=== PATIENT | male | born 1960 | race Caucasian/White ===

== ENCOUNTER → 2016-06-25 | Outpatient (CLI) | payer OTHER ==
[~2016-06-25] MED LIST: /CELE20CA OR; /PANT40TA OR; ATEN50TA2 PO; PREVACID PO; SERZONE PO; TRAM50TA2 OR
--- NOTE | 2016-06-25 13:22 | REP ---
CT INTERNAL AUDITORY CANALS WITHOUT CONTRAST: HISTORY: Right hearing loss. The internal auditory canals, cochlea, vestibules, and semicircular canals are normal in appearance. The ossicles are normal in configuration and position. The scutum are intact. There are areas of dehiscence in the tegmen bilaterally. The middle ear cavities and mastoid air cells are clear. The visualized sinuses are clear. The nasopharynx is normal in appearance. IMPRESSION: Normal CT internal auditory canals. Signed by Nehemiah Perales MD 06/25/2016 01:48 P
== END ==
LOC: M RAD 12:18
DX: H90.A31 Mixed conductive and sensorineural hearing loss, unilateral, right ear with restricted hearing on the contralateral side (principal)

== ENCOUNTER → 2016-10-20 | Outpatient (REF) ==
--- NOTE | 2016-10-20 11:56 | REP ---
PARTIAL LUMBAR SPINE, THREE VIEWS: HISTORY: Degenerative disc disease. There is no acute fracture or subluxation. The intervertebral discs are decreased in height consistent with disc degeneration. Osteophytes are present throughout the lumbar spine. There is loss of the normal lordotic curve. There is scoliosis convex to the right. IMPRESSION: Degenerative change as described above. Signed by Nehemiah Perales MD 10/20/2016 11:56 A
== END ==
LOC: M SMT 11:14
PROVIDERS: ATTEND Internal Medicine
DX: Z02.1 Encounter for pre-employment examination (principal)

== ENCOUNTER → 2017-11-23 | Outpatient (CLI) | payer OTHER ==
[2017-11-23 10:14] LABS: HEMATOCRIT 44.2 % (42.0-52.0); HEMOGLOBIN 15.6 g/dl (13.5-17.5); MEAN CORPUSCULAR HEMOGLOBIN 30.8 pg (27.0-33.0); MEAN CORPUSCULAR HGB CONC 35.3 g/dl (32.0-36.5); MEAN CORPUSCULAR VOLUME 87.2 fl (80.0-96.0); PLATELET COUNT, AUTOMATED 248 10^3/uL (150-450); RED BLOOD COUNT 5.07 10^6/uL (4.30-6.10); RED CELL DISTRIBUTION WIDTH 12.7 % (11.5-14.5); WHITE BLOOD COUNT 5.4 10^3/uL (4.0-10.0)
[2017-11-23 10:28] LABS: PROTHROMBIN TIME 12.2 SECONDS (12.4-14.5)
[2017-11-23 10:31] LABS: ALBUMIN 3.6 GM/DL (3.2-5.2); ALKALINE PHOSPHATASE 117 U/L (45-117); ALT/SGPT 75 U/L (12-78); ANION GAP 9 MEQ/L (8-16); AST/SGOT 26 U/L (7-37); BILIRUBIN,TOTAL 0.4 MG/DL (0.2-1.0); BLOOD UREA NITROGEN 18 MG/DL (7-18); CALCIUM LEVEL 8.3 MG/DL (8.5-10.1); CARBON DIOXIDE LEVEL 25 MEQ/L (21-32); CHLORIDE LEVEL 108 MEQ/L (98-107); CREATININE FOR GFR 0.85 MG/DL (0.70-1.30); GLOMERULAR FILTRATION RATE > 60.0 (>56); GLUCOSE, FASTING 107 MG/DL (70-100); POTASSIUM SERUM 4.1 MEQ/L (3.5-5.1); SODIUM LEVEL 142 MEQ/L (136-145); TOTAL PROTEIN 7.6 GM/DL (6.4-8.2)
[2017-11-23 10:51] LABS: ERYTHROCYTE SEDIMENTATION RATE 3 mm/hr (0-20)
== END ==
LOC: M ADMPAT 09:03
DX: M17.11 Unilateral primary osteoarthritis, right knee (principal)
CPT/HCPCS: 71046

== ENCOUNTER 2017-12-06 12:40 | Inpatient (IN) | payer OTHER ==
[2017-12-06] MEDS ORDERED: dexameTHASONE 10 MG/1 ML VIAL PRES.FREE (J1100) (12:41)
[2017-12-06] MEDS ORDERED: LIDOCAINE 1% MDV 20ML VIAL (12:41)
[2017-12-06] MEDS ORDERED: ROPIvacaine 0.5% 30 ML INJECTION (J2795 PER 1MG) (12:41)
[2017-12-06] MEDS ORDERED: LR 1,000 ML IV (13:15)
[2017-12-06] MEDS: LR 1,000 ML IV ×3 (14:00→18:00)
[2017-12-06] MEDS ORDERED: fentaNYL 100 MCG/2 ML INJECTION (J3010) As Ordered ×2 (14:24→15:47)
[2017-12-06] MEDS ORDERED: MIDAZOLAM INJ 2 MG/2 ML VIAL (J2250) As Ordered ×2 (14:24→15:47)
[2017-12-06] MEDS: MIDAZOLAM INJ 2 MG/2 ML VIAL (J2250) IV (14:46)
[2017-12-06] MEDS: fentaNYL 100 MCG/2 ML INJECTION (J3010) IV (14:46)
[2017-12-06] MEDS ORDERED: PROPOFOL 200 MG/20 ML VIAL As Ordered (15:47)
[2017-12-06] MEDS ORDERED: BUPIVACAINE/DEXTROSE 0.75% 2 ML AMP As Ordered (15:47)
[2017-12-06] MEDS: CLINDAMYCIN 900 MG in APPROPRIATE DILUENT 1 EA IV (15:57)
[2017-12-06] MEDS: EPINEPHrine INJ 1 MG/ML 1ML AMP As Ordered (16:29)
[2017-12-06] MEDS: TRANEXAMIC ACID 100 MG/ML 10ML VIAL As Ordered (16:29)
[2017-12-06] MEDS: CLINDAMYCIN INJ 900MG/6ML VIAL As Ordered (16:30)
[2017-12-06] MEDS: BUPIVACAINE LIPOSOME/PF 1.3% 20 ML VIAL (13.3MG/ML)(EXPAREL) As Ordered (16:59)
[2017-12-06] MEDS ORDERED: PHENYLephrine HCL 500 MCG/5 ML (100MCG/ML) SYRINGE (J2370) As Ordered (17:10)
[2017-12-06] MEDS ORDERED: PERCOCET 5MG/325MG TAB PO (18:00)
[2017-12-06] MEDS ORDERED: HYDROMORPHONE HCL 0.5 MG/ 0.5 ML SYRINGE (J1170 PER 1) IV (18:00)
[2017-12-06] MEDS ORDERED: FLEET ENEMA PR (18:00)
[2017-12-06] MEDS ORDERED: NALOXONE INJ 0.4 MG/1 ML VIAL (J2310) IV (18:00)
[2017-12-06] MEDS ORDERED: ACETAMINOPHEN TAB 650MG DOSE (2X325MG) PO (18:00)
[2017-12-06] MEDS ORDERED: diphenhydrAMINE INJ 50MG/ML VIAL (J1200) IV (18:00)
[2017-12-06] MEDS ORDERED: EPIDURAL/PCA KEYS XX (18:00)
[2017-12-06] MEDS ORDERED: NALBUPHINE HCL 10 MG/ML AMP (J2300) IV (18:00)
[2017-12-06] MEDS ORDERED: ONDANSETRON 4MG/2ML VIAL (J2405) IV ×2 (18:00)
[2017-12-06] MEDS ORDERED: fentaNYL 100 MCG/2 ML INJECTION (J3010) IV (18:00)
[2017-12-06] MEDS: MORPHINE 1MG/ML IN 0.9% NACL 100ML IV BAG IV (18:10)
[2017-12-06] MEDS: LACTATED RINGER'S 1000 ML IV (19:15)
[2017-12-06] MEDS ORDERED: PHENYLephrine HCL 500 MCG/5 ML (100MCG/ML) SYRINGE (J2370) (19:58)
[2017-12-06 21:10] LABS: HEMOGLOBIN 15.2 g/dl (13.5-17.5); MEAN CORPUSCULAR HEMOGLOBIN 30.3 pg (27.0-33.0); MEAN CORPUSCULAR HGB CONC 34.5 g/dl (32.0-36.5); MEAN CORPUSCULAR VOLUME 87.8 fl (80.0-96.0); PLATELET COUNT, AUTOMATED 220 10^3/uL (150-450); RED BLOOD COUNT 5.01 10^6/uL (4.30-6.10); RED CELL DISTRIBUTION WIDTH 12.3 % (11.5-14.5); WHITE BLOOD COUNT 11.6 10^3/uL (4.0-10.0)
[2017-12-07] MEDS: CLINDAMYCIN 900 MG in APPROPRIATE DILUENT 1 EA IV ×2 (00:47→08:27)
[2017-12-07] MEDS: SENOKOT S TAB PO (08:27)
[2017-12-07] MEDS: ONDANSETRON 4 MG TAB (S0181) PO (08:27)
[2017-12-07] MEDS: PERCOCET 5MG/325MG TAB PO ×2 (08:28→12:32)
[2017-12-07] MEDS: MIRALAX *UNIT DOSE* 17GM PACKET PO (08:31)
[2017-12-07] MEDS: MOM 30ML SUSPENSION UDC PO (08:31)
[2017-12-07 09:19] LABS: HEMATOCRIT 43.4 % (42.0-52.0); MEAN CORPUSCULAR HEMOGLOBIN 30.5 pg (27.0-33.0); MEAN CORPUSCULAR HGB CONC 34.6 g/dl (32.0-36.5); MEAN CORPUSCULAR VOLUME 88.4 fl (80.0-96.0); PLATELET COUNT, AUTOMATED 265 10^3/uL (150-450); RED BLOOD COUNT 4.91 10^6/uL (4.30-6.10); RED CELL DISTRIBUTION WIDTH 12.3 % (11.5-14.5); WHITE BLOOD COUNT 16.5 10^3/uL (4.0-10.0)
[2017-12-07] MEDS ORDERED: RIVAROXABAN 10 MG TAB (XARELTO) PO (18:00)
== END 2017-12-07 13:05 | disposition home or self-care (01) | DRG 302 ==
LOC: M SDC 12:40 → M OR 18:19 → M MS5PR 19:50
PROC: 0SRC0J9 Replacement of Right Knee Joint with Synthetic Substitute, Cemented, Open Approach (ICD-10-PCS; principal; 2017-12-06 15:46)
DX: M17.11 Unilateral primary osteoarthritis, right knee (principal); I10 Essential (primary) hypertension; E78.5 Hyperlipidemia, unspecified; M54.2 Cervicalgia; G89.29 Other chronic pain; J30.9 Allergic rhinitis, unspecified; M54.5 Low back pain; G25.81 Restless legs syndrome; K21.9 Gastro-esophageal reflux disease without esophagitis; F34.1 Dysthymic disorder; Z88.0 Allergy status to penicillin; Z79.899 Other long term (current) drug therapy

== ENCOUNTER → 2018-05-27 | Outpatient (CLI) | payer MEDICARE, OTHER ==
[~2018-05-27] MED LIST changes: +METO1TAB32 PO; +MONT10TA2 PO; +PERC5TAB12 PO; +PIRO10CA2 PO; +PROP40TA62 PO; +VENL150C43 PO; +XARE10TA PO; +ZOLP10TA2 PO
--- NOTE | 2018-05-27 09:58 | REP ---
MRI lumbar spine without contrast: History: Intervertebral disc degeneration. Back pain radiating down both lower extremities. Rule out disc herniation versus stenosis. Technique: Sagittal and axial T1 and T2-weighted scans are acquired in the usual fashion with and without fat saturation. Sequences include spin echo, turbo spin-echo, and STIR imaging sequences. MRI findings: There is straightening of the normal lumbar lordosis. Lumbar vertebral body heights are preserved. Alignment is otherwise normal. There is no evidence of spondylolysis or spondylolisthesis. The conus medullaris is normal in position and appearance at T12. No extravertebral abnormality is noted. Normal caliber aorta. Axial and sagittal images at the L1-2 level demonstrate degenerative disc disease with reactive marrow changes on either side of the narrowed L1-2 disc. There is diffuse bulging of the posterior margin of the L1-2 disc but no central canal stenosis is seen. No neural foraminal encroachment is observed. At L2-L3, there is minimal diffuse disc bulging as well. There is mild left foraminal disc bulging. The left-sided nerve root is not visibly compressed and is surrounded by epidural fat. At L3-L4, the posterior disc margin is normal. There is mild facet hypertrophy bilaterally. No central canal stenosis or neural foraminal narrowing is seen. At L4-L5, there is a right posterior and right foraminal disc bulge. There is right neural foraminal encroachment due to facet hypertrophy and disc bulging. Reactive marrow changes are seen on the right side of the degenerated L4-5 disc. No central canal stenosis is seen. Left neural foramen is adequate. At L5-S1, there is osteoarthritic facet hypertrophy bilaterally. There is diffuse disc bulging including the foraminal segments. There is mild bilateral neural foraminal narrowing at L5-S1 due to facet hypertrophy and disc bulging. No focal disc protrusion. Impression: Degenerative spondylosis changes. Bilateral neural foraminal narrowing is seen at L5-S1 and right neural foraminal encroachment is noted at L4-5. Electronically Signed by Hans Haq MD 05/27/2018 10:41 A
== END ==
LOC: M PLARAD 07:31
PROVIDERS: ATTEND Physician Assistant
DX: M51.36 Other intervertebral disc degeneration, lumbar region (principal); M47.816 Spondylosis without myelopathy or radiculopathy, lumbar region